=== PATIENT | female | born 1990 | race Hispanic/Latino ===

== ENCOUNTER 2022-07-13 23:43 | Day surgery (SDC) | payer BC ==
[2022-07-14 00:13] VITALS: BMI 42.5
[2022-07-14 01:10] LABS: #Eosinphils 0.1 10x3/uL (0.0-0.5); #Monocytes 0.7 10x3/uL (0.0-1.1); #Neutrophils 6.4 10x3/uL (1.5-8.4); %Basophils 0.3 % (0.0-2.0); %Eosinophils 1.4 % (0.0-6.0); %Lymphocytes 23.6 % (18.0-47.0); %Neutrophils 67.4 % (40.0-75.0); Hemoglobin 10.6 g/dL (12.0-15.5); Mean Corpuscular HGB CONC 32.5 g/dL (32.0-36.0); Mean Corpuscular Hemoglobin 27.5 pg (27.0-33.0); Mean Corpuscular Volume 84.7 fl (81.6-98.3); Mean Platelet Volume 10.4 fl (7.4-10.4); Platelet Count 311 10x3/uL (150-450); RBC Distribution Width 13.9 % (11.5-14.5); Red Blood Cell (RBC) Count 3.85 10x6/uL (3.90-5.03); White Blood Cell (WBC) Count 9.5 10x3/uL (3.5-10.5)
[2022-07-14 01:25] LABS: ALT (SGPT) 24 U/L (8-55); AST (SGOT) 18 U/L (5-34); Albumin 3.1 g/dL (3.5-5.0); Alkaline Phosphatase 146 U/L (40-110); Anion Gap 13 mmol/L (10-20); BUN (Urea Nitrogen) 9 mg/dL (7.0-18.7); Bilirubin, Total 0.2 mg/dL (0.2-1.2); Calc. Creatinine Clearance 256 mL/min (70-130); Calcium 8.8 mg/dL (7.8-10.44); Carbon Dioxide 17 mmol/L (22-29); Chloride 109 mmol/L (98-107); Estimated GFR 124; Globulin 3.4 g/dL (2.4-3.5); Glucose 138 mg/dL (70-105); Potassium 3.6 mmol/L (3.5-5.1); Protein, Total 6.5 g/dL (6.0-8.3); Sodium 135 mmol/L (136-145)
[2022-07-14] MEDS ORDERED: hydrALAZINE 20 MG/ML VIAL SLOW IVP PRN (01:28)
[2022-07-14] MEDS ORDERED: Acetaminophen 325 MG TAB PO SCH (01:30)
[2022-07-14] MEDS ORDERED: Ondansetron ODT 4 MG TAB PO SCH (01:30)
[2022-07-14 01:40] LABS: Creatinine, Urine 55.54 mg/dL (47-110)
== END 2022-07-14 02:04 | disposition home or self-care (01) ==
LOC: CSHLD/OP 23:43
PROVIDERS: ATTEND Student in an Organized Health Care Education/Training Program
DX: O99.891 Other specified diseases and conditions complicating pregnancy (principal); R03.0 Elevated blood-pressure reading, without diagnosis of hypertension; O99.283 Endocrine, nutritional and metabolic diseases complicating pregnancy, third trimester; R51.9 Headache, unspecified; E03.9 Hypothyroidism, unspecified; Z79.899 Other long term (current) drug therapy; Z3A.35 35 weeks gestation of pregnancy
CPT/HCPCS: 36415; 80053; 82570; 84156; 85025; 99284; Q0162

== ENCOUNTER 2022-08-05 17:36 | Inpatient (IN) | payer BC ==
[~2022-08-05 17:36] MED LIST: Bupivacaine/Epinephrine 0.25% 30 ML VIAL ONE
[2022-08-05 18:08] VITALS: BMI 41.5
[2022-08-05] MEDS ORDERED: hydrALAZINE 20 MG/ML VIAL SLOW IVP PRN (18:56)
[2022-08-05] MEDS ORDERED: Methylergonovine 0.2 MG/ML VIAL IM PRN (20:01)
[2022-08-05] MEDS ORDERED: Ondansetron PF 4 MG/2 ML Vial IVP PRN (20:01)
[2022-08-05] MEDS ORDERED: Butorphanol Tartrate 1 MG/ML VIAL SLOW IVP PRN (20:01)
[2022-08-05] MEDS ORDERED: Misoprostol 200 MCG TAB PR PRN (20:01)
[2022-08-05] MEDS ORDERED: Ibuprofen 800 MG TAB PO PRN (20:01)
[2022-08-05] MEDS ORDERED: Fentanyl 100 MCG/2 ML VIAL SLOW IVP PRN (20:01)
[2022-08-05] MEDS ORDERED: Diphenoxylate HCl/Atropine Tablet PO PRN (20:01)
[2022-08-05] MEDS ORDERED: Carboprost 250 MCG/ML AMP IM PRN (20:01)
[2022-08-05] MEDS ORDERED: Promethazine HCl 25 MG/ML VIAL IM PRN (20:01)
[2022-08-05] MEDS ORDERED: Acetaminophen 500 MG TAB PO PRN (20:01)
[2022-08-05] MEDS ORDERED: Tranexamic Acid 1,000 MG/10 ML VIAL IVP PRN (20:01)
[2022-08-05] MEDS ORDERED: Lidocaine 1% (PF) 30 ML VIAL SC PRN (20:01)
[2022-08-05] MEDS ORDERED: Penicillin G Potassium 5 MILL.UNITS in Sodium Chloride 0.9% 100 ML IVPB SCH (20:15)
[2022-08-05] MEDS ORDERED: NS w/ Oxytocin 30 units 500 ML IV SCH ×3 (20:15)
[2022-08-05] MEDS: Lactated Ringer's 1,000 ML IV SCH (20:55)
[2022-08-05 21:16] LABS: Hemoglobin 10.6 g/dL (12.0-15.5); Mean Corpuscular HGB CONC 32.4 g/dL (32.0-36.0); Mean Corpuscular Hemoglobin 26.8 pg (27.0-33.0); Mean Corpuscular Volume 82.8 fl (81.6-98.3); Mean Platelet Volume 10.5 fl (7.4-10.4); Platelet Count 273 10x3/uL (150-450); RBC Distribution Width 14.4 % (11.5-14.5); Red Blood Cell (RBC) Count 3.95 10x6/uL (3.90-5.03); White Blood Cell (WBC) Count 10.1 10x3/uL (3.5-10.5)
[2022-08-05 22:05] LABS: Syphilis Antibody Nonreactive (Nonreactive); Syphilis Antibody Index 0.07 S/CO (<1.00 Non-Reactive)
[2022-08-05 23:07] LABS: HBSAg Index 0.14 S/CO (0-0.99); Hep B Surf Ag - L&D Non-Reactive S/CO (NonReactive)
[2022-08-06] MEDS ORDERED: Fentanyl 2 mcg/Bup 0.1% Cadd 100 ML ONE ×2 (00:09→06:59)
[2022-08-06] MEDS ORDERED: Naloxone HCl 0.4 mg/ml Vial IVP PRN ×2 (00:53)
[2022-08-06] MEDS ORDERED: Lactated Ringer's 500 ML IV PRN (00:53)
[2022-08-06] MEDS ORDERED: Moisturizing Cream (Eucerin) 113 GM JAR TOP PRN (00:53)
[2022-08-06] MEDS ORDERED: ePHEDrine Sulfate 50 MG/10 ML VIAL SLOW IVP PRN (00:53)
[2022-08-06] MEDS ORDERED: Ondansetron PF 4 MG/2 ML Vial IVP PRN (00:53)
[2022-08-06] MEDS ORDERED: Promethazine HCl 25 MG/ML VIAL IM PRN (00:53)
[2022-08-06] MEDS ORDERED: Acetaminophen 325 MG TAB PO PRN ×2 (00:53→09:41)
[2022-08-06] MEDS ORDERED: diphenhydrAMINE 50 MG/ML VIAL IVP PRN (00:53)
[2022-08-06] MEDS: Penicillin G 2.5 MILL.units 2.5 MILL.UNITS in Premix Bag 1 BAG IVPB SCH ×4 (00:55→15:44)
[2022-08-06] MEDS ORDERED: Communication Order-Pharmacy FS SCH (01:00)
[2022-08-06] MEDS ORDERED: Fentanyl 2 mcg/Bupivacaine 0.1% Cassette 100 ML EPIDURAL SCH (01:00)
[2022-08-06] MEDS: Lactated Ringer's 1,000 ML IV SCH ×3 (04:31→23:30)
[2022-08-06 08:57] LABS: HIV (1/2) Antibody/Antigen Non-Reactive (NonReactive); HIV 1/2 INDEX 0.12 S/CO (<1.00)
[2022-08-06] MEDS ORDERED: Carboprost 250 MCG/ML AMP ONE (09:30)
[2022-08-06] MEDS ORDERED: Acetaminophen/Codeine 30-300mg Tablet PO PRN (09:41)
[2022-08-06] MEDS ORDERED: Carboprost 250 MCG/ML AMP IM SCH (09:45)
[2022-08-06] MEDS ORDERED: Diphenoxylate HCl/Atropine Tablet PO SCH (09:45)
[2022-08-06 10:13] LABS: #Monocytes 0.7 10x3/uL (0.0-1.1); #Neutrophils 9.4 10x3/uL (1.5-8.4); %Basophils 0.2 % (0.0-2.0); %Eosinophils 0.3 % (0.0-6.0); %Lymphocytes 13.4 % (18.0-47.0); %Monocytes 5.7 % (0.0-10.0); %Neutrophils 80.1 % (40.0-75.0); Mean Corpuscular HGB CONC 31.3 g/dL (32.0-36.0); Mean Corpuscular Hemoglobin 26.7 pg (27.0-33.0); Mean Corpuscular Volume 85.1 fl (81.6-98.3); Mean Platelet Volume 10.7 fl (7.4-10.4); Platelet Count 271 10x3/uL (150-450); RBC Distribution Width 14.5 % (11.5-14.5); Red Blood Cell (RBC) Count 3.75 10x6/uL (3.90-5.03); White Blood Cell (WBC) Count 11.7 10x3/uL (3.5-10.5)
[2022-08-06 10:51] LABS: D-Dimer Test 4.79 mg/L FEU (0.19-0.50); INR-International Normal Ratio 0.9; PTT 24.8 sec (22.0-33.0); Prothrombin Time 9.7 sec (9.5-12.1)
[2022-08-06] MEDS: CEFAZOLIN 2 GM in Sodium Chloride 0.9% 100 ML IVPB SCH ×3 (11:13→20:06)
[2022-08-06] MEDS: Docusate 100 MG CAP PO PRN (14:50)
[2022-08-06] MEDS: Ibuprofen 800 MG TAB PO SCH ×2 (17:33→20:08)
[2022-08-06] MEDS: Acetaminophen/Codeine 30-300mg Tablet PO PRN (18:59)
[2022-08-06] MEDS: Gentamicin Sulfate 400 MG in Sodium Chloride 0.9% 100 ML IVPB SCH (21:05)
[2022-08-07] MEDS: CEFAZOLIN 2 GM in Sodium Chloride 0.9% 100 ML IVPB SCH ×3 (04:13→20:18)
[2022-08-07] MEDS: Ibuprofen 800 MG TAB PO SCH ×3 (04:24→22:39)
[2022-08-07] MEDS: Docusate 100 MG CAP PO PRN ×2 (08:20→20:23)
[2022-08-07] MEDS ORDERED: Famotidine 20 MG TAB PO PRN (09:27)
[2022-08-07 09:28] LABS: #Eosinphils 0.1 10x3/uL (0.0-0.5); #Monocytes 0.6 10x3/uL (0.0-1.1); #Neutrophils 6.5 10x3/uL (1.5-8.4); %Basophils 0.2 % (0.0-2.0); %Eosinophils 1.1 % (0.0-6.0); %Lymphocytes 22.2 % (18.0-47.0); %Monocytes 6.2 % (0.0-10.0); Hemoglobin 8.1 g/dL (12.0-15.5); Mean Corpuscular HGB CONC 32.3 g/dL (32.0-36.0); Mean Corpuscular Hemoglobin 27.1 pg (27.0-33.0); Mean Corpuscular Volume 83.9 fl (81.6-98.3); Mean Platelet Volume 10.6 fl (7.4-10.4); Platelet Count 202 10x3/uL (150-450); RBC Distribution Width 14.7 % (11.5-14.5); Red Blood Cell (RBC) Count 2.99 10x6/uL (3.90-5.03); White Blood Cell (WBC) Count 9.3 10x3/uL (3.5-10.5)
[2022-08-07] MEDS: Acetaminophen/Codeine 30-300mg Tablet PO PRN (10:27)
[2022-08-07] MEDS ORDERED: Metoclopramide HCl 10 MG/2 ML VIAL IVP SCH (16:00)
[2022-08-07] MEDS ORDERED: Pantoprazole 40 MG VIAL IVP SCH (16:00)
[2022-08-07] MEDS: Gentamicin Sulfate 400 MG in Sodium Chloride 0.9% 100 ML IVPB SCH (21:08)
[2022-08-08] MEDS: CEFAZOLIN 2 GM in Sodium Chloride 0.9% 100 ML IVPB SCH ×2 (04:10→15:56)
[2022-08-08 07:53] VITALS: BP 108/68; TEMP 98
[2022-08-08] MEDS: Ibuprofen 800 MG TAB PO SCH (08:11)
[2022-08-08] MEDS: Docusate 100 MG CAP PO PRN (08:13)
[2022-08-08] MEDS: Lactated Ringer's 1,000 ML IV SCH ×2 (10:51→10:52)
[2022-08-08] MEDS ORDERED: Measles/Mumps/Rubella 10 MCG/0.5 ML VIAL SC ONE (12:50)
== END 2022-08-08 14:50 | disposition home or self-care (01) | DRG 768 ==
LOC: CSHLD/OP 17:36 → CSHLD 20:20 → CSHPP 08-06 17:11
PROVIDERS: ADMIT Student in an Organized Health Care Education/Training Program; ATTEND Student in an Organized Health Care Education/Training Program
PROC: 10E0XZZ Delivery of Products of Conception, External Approach (ICD-10-PCS; principal; 2022-08-06)
PROC: 0W3R7ZZ Control Bleeding in Genitourinary Tract, Via Natural or Artificial Opening (ICD-10-PCS; 2022-08-06)
PROC: 10907ZC Drainage of Amniotic Fluid, Therapeutic from Products of Conception, Via Natural or Artificial Opening (ICD-10-PCS; 2022-08-06)
PROC: 30233N1 Transfusion of Nonautologous Red Blood Cells into Peripheral Vein, Percutaneous Approach (ICD-10-PCS; 2022-08-06)
DX: O36.8130 Decreased fetal movements, third trimester, not applicable or unspecified (principal); Z37.0 Single live birth; O41.03X0 Oligohydramnios, third trimester, not applicable or unspecified; D62 Acute posthemorrhagic anemia; O86.12 Endometritis following delivery; E03.9 Hypothyroidism, unspecified; O99.284 Endocrine, nutritional and metabolic diseases complicating childbirth; O99.824 Streptococcus B carrier state complicating childbirth; O12.04 Gestational edema, complicating childbirth; O90.81 Anemia of the puerperium; Z79.890 Hormone replacement therapy; Z3A.38 38 weeks gestation of pregnancy; Z98.890 Other specified postprocedural states
CPT/HCPCS: 36415; 36430; 51702; 76819; 85025; 85027; 85049; 85300; 85362; 85379; 85384; 85610; 85730; 86762; 86780; 86850; 86900; 86901; 87040; 87086; 87340; 87389; 90707; 99285; C9113; J1580; J2210; J2405; J2540; J2590; J2765; J3490; J7120; P9016